=== PATIENT | female | born 1995 | race American Indian/Alaskan Native ===

== ENCOUNTER 2021-06-20 20:52 | Emergency (ER) | payer MEDICAID ==
[2021-06-20 20:55] VITALS: BP 128/82
--- NOTE | 2021-06-21 01:03 | Emergency Department Report ---
ED General Adult HPI - General Chief complaint: Pain General Stated complaint: RIGHT SIDE PAIN Time Seen by Provider: 06/21/21 00:42 Source: EMS Mode of arrival: Stretcher Limitations: No Limitations - History of Present Illness Initial comments: Patient is a 26-year-old female who presents for generalized body aches and malaise x2 weeks. Patient states symptoms are exacerbating sciatica for an additional 6 months ago. Patient denies new fall injury or trauma. Patient states cough nocturnal fever and malaise. Patient denies nausea nor vomiting th ere is no diarrhea. He is tolerating p.o. intake at this time. Symptoms are exacerbated by activity. Symptoms are relieved by nothing tried. Patient is not COVID vaccinated, LMP 2 months ago - Related Data Previous Rx's Medication Instructions Recorded Last Taken Type Menthol/Camphor [[place] 1 applicatio TP QID PRN #1 tube 06/21/21 Unknown Rx Ointment] Naproxen 500 mg PO BID PRN #30 tab 06/21/21 Unknown Rx Allergies Allergy/AdvReac Type Severity Reaction Status Date / Time No Known Allergies Allergy Verified 06/20/21 20:55 ED Review of Systems ROS: Stated complaint: RIGHT SIDE PAIN Other details as noted in HPI Constitutional: chills, fever, malaise Eyes: denies: eye pain, eye discharge, vision change ENT: congestion. denies: ear pain, throat pain Respiratory: cough. denies: shortness of breath, wheezing Cardiovascular: denies: chest pain, palpitations Endocrine: no symptoms reported Gastrointestinal: denies: abdominal pain, nausea, vomiting, diarrhea Genitourinary: denies: urgency, dysuria, frequency, hematuria, discharge Musculoskeletal: back pain, myalgia Skin: denies: rash, lesions Neurological: denies: headache, weakness, numbness, paresthesias, confusion, vertigo Psychiatric: denies: anxiety, depression Hematological/Lymphatic: denies: easy bleeding, easy bruising ED Past Medical Hx - Past Medical History Previous Medical History?: No - Medications Home Medications: Home Medications Medication Instructions Recorded Confirmed Last Taken Type Menthol/Camphor [[place] 1 applicatio TP QID PRN #1 tube 06/21/21 Unknown Rx Ointment] Naproxen 500 mg PO BID PRN #30 tab 06/21/21 Unknown Rx ED Physical Exam - General Limitations: No Limitations General appearance: alert, in no apparent distress - Head Head exam: Present: atraumatic, normocephalic - Eye Eye exam: Present: normal appearance, PERRL, EOMI Pupils: Present: normal accommodation - ENT ENT exam: Present: normal orophraynx, mucous membranes moist, TM's normal bilaterally, normal external ear exam - Neck Neck exam: Present: normal inspection, full ROM. Absent: tenderness, lymphadenopathy, thyromegaly - Respiratory Respiratory exam: Present: normal lung sounds bilaterally, chest wall tenderness (right flank ). Absent: respiratory distress, wheezes, rales, rhonchi, stridor - Cardiovascular Cardiovascular Exam: Present: regular rate, normal rhythm, normal heart sounds. Absent: systolic murmur, diastolic murmur, rubs, gallop - GI/Abdominal GI/Abdominal exam: Present: soft, normal bowel sounds. Absent: distended, tenderness, guarding, rebound, rigid, bruit, hernia - Rectal Rectal exam: Present: deferred - Extremities Exam Extremities exam: Present: normal inspection, full ROM, normal capillary refill. Absent: tenderness, pedal edema, joint swelling, calf tenderness - Back Exam Back exam: Present: normal inspection, full ROM. Absent: CVA tenderness (R), CVA tenderness (L) - Neurological Exam Neurological exam: Present: alert, oriented X3, CN II-XII intact, normal gait, reflexes normal. Absent: motor sensory deficit - Expanded Neurological Exam Expanded Patient oriented to: Present: person, place, time Speech: Present: fluid speech Motor strength exam: RUE: 5, LUE: 5, RLE: 5, LLE: 5 DTR: ankle (R): 1+, ankle (L): 1+ Best Eye Response (Edil): (4) open spontaneously Best Motor Response (Edil): (6) obeys commands Best Verbal Response (Edil): (5) oriented Edil Total: 15 - Psychiatric Psychiatric exam: Present: normal affect, normal mood - Skin Skin exam: Present: warm, dry, intact, normal color. Absent: rash ED Course Vital Signs 06/20/21 20:54 Temperature 97.4 F L Pulse Rate 90 Respiratory 18 Rate Blood Pressure 128/82 [Left] O2 Sat by Pulse 98 Oximetry ED Medical Decision Making - Lab Data Result diagrams: 06/21/21 01:07 06/21/21 01:07 Labs 06/21/21 06/21/21 06/21/21 01:07 01:07 Unknown WBC 7.1 RBC 4.58 Hgb 12.6 Hct 39.9 MCV 87 MCH 28 MCHC 32 RDW 12.9 L Plt Count 215 Lymph % (Auto) 43.9 H [place] % (Auto) 9.9 H Eos % (Auto) 2.2 Baso % (Auto) 0.4 Lymph # (Auto) 3.1 [place] # (Auto) 0.7 Eos # (Auto) 0.2 Baso # (Auto) 0.0 Seg Neutrophils % 43.6 Seg Neutrophils # 3.1 Sodium 140 Potassium 4.1 Chloride 103.8 Carbon Dioxide 23 Anion Gap 17 BUN 9 Creatinine 0.6 Estimated GFR > 60 BUN/Creatinine Ratio 15 Glucose 86 Calcium 8.8 Total Bilirubin 0.70 AST 11 ALT 8 Alkaline Phosphatase 75 Total Protein 6.8 Albumin 4.3 Albumin/Globulin Ratio 1.7 Urine Color Yellow Urine Turbidity Cloudy Urine pH 5.0 Ur Specific [place] 1.032 H Urine Protein 30 mg/dl Urine Glucose (UA) Neg Urine Ketones Tr Urine Blood Neg Urine Nitrite Neg Urine Bilirubin Neg Urine Urobilinogen 2.0 Ur Leukocyte Esterase Neg Urine WBC (Auto) 2.0 Urine RBC (Auto) 2.0 U Epithel Cells (Auto) 33.0 H Urine Bacteria (Auto) 1+ Urine Mucus 3+ Urine HCG, Qual Negative - Radiology Data Radiology results: report reviewed, image reviewed c: AJIT LU NP Fluoro Time In Minutes: CHEST 2 VIEWS INDICATION / CLINICAL INFORMATION: fever cough. COMPARISON: None available. FINDINGS: SUPPORT DEVICES: None. HEART / MEDIASTINUM: No significant abnormality. LUNGS / PLEURA: No significant pulmonary or pleural abnormality. No pneumothorax. ADDITIONAL FINDINGS: Moderate levoscoliosis of the thoracic spine. IMPRESSION: 1. No acute findings. Signer Name: Nicole Belcher MD Signed: 06/21/2021 3:50 AM Workstation Name: [id number] Transcribed By: RACHAEL Dictated By: Orestes Belcher MD Electronically Authenticated By: Orestes Belcher MD Signed Date/Time: 06/21/21 3250 - Medical Decision Making Chest x-ray normal infiltration opacities, labs normal. Patient advises symptoms are improved without intervention. Plan , diagnosis musculoskeletal pain, viral illness, DC to home, [id number] NSAIDs as needed for pain. Follow-up with your doctor in 2 to 3 days. Critical care attestation.: If time is entered above; I have spent that time in minutes in the direct care of this critically ill patient, excluding procedure time. ED Disposition Clinical Impression: Viral illness, Musculoskeletal pain Disposition: 01 HOME / SELF CARE / HOMELESS Is pt being admited?: No Does the pt Need Aspirin: No Condition: Stable Instructions: Viral Illness, Adult, Musculoskeletal Pain Additional Instructions: Take medications as prescribed, hydrate as directed. Follow-up with your doctor in 2 to 3 days. Return to emergency department should symptoms worsen. Prescriptions: Naproxen 500 mg PO BID PRN #30 tab PRN Reason: pain Menthol/Camphor [[place] Ointment] 1 applicatio TP QID PRN #1 tube PRN Reason: Pain Referrals: JAMES RHODES MD [Staff Physician] - 3-5 Days Forms: Work/School Release Form(ED) Time of Disposition: 04:49
[2021-06-21 01:38] LABS: Basophils % (Auto) 0.4 % (0.0-1.8); Eosinophils # (Auto) 0.2 K/mm3 (0.0-0.4); Eosinophils % (Auto) 2.2 % (0.0-4.3); Hematocrit 39.9 % (30.3-42.9); Hemoglobin 12.6 gm/dl (10.1-14.3); Lymphocytes # (Auto) 3.1 K/mm3 (1.2-5.4); Lymphocytes % (Auto) 43.9 % (13.4-35.0); Mean Corpuscular HGB Conc 32 % (30-34); Mean Corpuscular Volume 87 fl (79-97); Monocytes # (Auto) 0.7 K/mm3 (0.0-0.8); Monocytes % (Auto) 9.9 % (0.0-7.3); Platelet Count 215 K/mm3 (140-440); Red Blood Count 4.58 M/mm3 (3.65-5.03); Red Cell Distribution Width 12.9 % (13.2-15.2)
[2021-06-21 02:02] LABS: Alanine Aminotransferase 8 units/L (7-56); Albumin 4.3 g/dL (3.9-5); Blood Urea Nitrogen 9 mg/dL (7-17); Calcium 8.8 mg/dL (8.4-10.2); Hemolysis Index 24
[2021-06-21 02:06] LABS: BUN/Creatinine Ratio 15
[2021-06-21 03:07] LABS: Bacteria,Urine 1+ /HPF (Negative); Bilirubin,Urine NEG (Negative); Blood,Urine NEG (Negative); Color,Urine Yellow (Yellow); Mucus,Urine 3+ /HPF
[2021-06-21 03:08] LABS: HCG Qualitative,Urine Negative (Negative)
--- NOTE | 2021-06-21 03:54 | XRay Report ---
CHEST 2 VIEWS INDICATION / CLINICAL INFORMATION: fever cough. COMPARISON: None available. FINDINGS: SUPPORT DEVICES: None. HEART / MEDIASTINUM: No significant abnormality. LUNGS / PLEURA: No significant pulmonary or pleural abnormality. No pneumothorax. ADDITIONAL FINDINGS: Moderate levoscoliosis of the thoracic spine. IMPRESSION: 1. No acute findings. Signer Name: Nicole Belcher MD Signed: 06/21/2021 3:50 AM Workstation Name: [id number]
== END 2021-06-21 05:00 | disposition home or self-care (01) ==
LOC: ED 20:52
DX: B34.9 Viral infection, unspecified (principal); M79.18 Myalgia, other site
CPT/HCPCS: 36415; 71046; 80053; 81001; 81025; 85025; 99284